=== PATIENT | female | born 1965 | race Caucasian/White ===

== ENCOUNTER 2020-05-03 14:52 | Observation (INO) ==
[2020-05-03] MEDS ORDERED: Isovue-370 500 ML BOTTLE IVP ONE (15:07)
[2020-05-03 15:20] LABS: Hematocrit 36.4 % (35.3-44.9); Mean Corpuscular HGB Conc 33.2 g/dL (31.6-35.5); Mean Corpuscular Hemoglobin 30.5 pg (28.0-33.3); Mean Corpuscular Volume 91.7 fL (83.0-100.0); Mean Platelet Volume 9.7 fL (9.4-12.4); Platelet Count 201 K/mcL (140-400); Red Blood Count 3.97 M/mcL (3.82-4.97); Red Cell Distribution Width 13.1 % (11.5-14.5); White Blood Count 11.6 K/mcL (4.3-11.1)
[2020-05-03 15:24] LABS: Hemoglobin 12.1 g/dL (11.5-15.4)
[2020-05-03 15:41] LABS: Alanine Aminotransferase 31 Units/L (7-52); Albumin/Globulin Ratio 1.5 (1.1-2.2); Alkaline Phosphatase 67 Units/L (34-104); Aspartate Amino Transferase 26 Units/L (13-39); BUN/Creatinine Ratio 12 (6-26); Bilirubin,Direct 0.2 mg/dL (0.0-0.2); Bilirubin,Indirect 0.5 mg/dL (0.0-1.0); Bilirubin,Total 0.7 mg/dL (0.3-1.0); Blood Urea Nitrogen 16 mg/dL (6-20); Calcium 8.3 mg/dL (8.6-10.3); Carbon Dioxide 28 mEq/L (23-29); Chloride 92 mEq/L (98-107); Globulin 2.6 g/dL (2.4-3.5); Glucose 131 mg/dL (70-105); Lipase 27 Units/L (11-82); Osmolality,Calculated 275 (280-300); Potassium 3.3 mEq/L (3.5-5.1); Sodium 131 mEq/L (136-145); Total Protein 6.6 g/dL (6.4-8.9); Troponin I < 0.03 ng/mL (< 0.04); eGFR For African Americans 49 (> 60); eGFR For Non-African Americans 40 (> 60)
[2020-05-03] MEDS ORDERED: 0.9 % Sodium Chloride 500 ML IVC ONE (16:47)
[2020-05-03 16:54] LABS: Bilirubin,Urine Negative (Negative); Blood,Urine Negative (Negative); Clarity,Urine Clear (Clear); Color,Urine Colorless (Yellow); Glucose,Urine (UA) Normal (Normal); Ketones,Urine Negative (Negative); Leukocyte Esterase,Urine Negative (Negative); Nitrite,Urine Negative (Negative); PH,Urine 6.5 pH Units (5.0-8.0); Protein,Urine Negative (Neg-Trace); Specific Gravity,Urine 1.011 (1.010-1.025); Urobilinogen,Urine Normal (Normal)
[2020-05-03] MEDS ORDERED: Naloxone 0.4 MG/ML INJ IVP PRN (18:09)
[2020-05-03] MEDS ORDERED: Ondansetron 4 MG/2 ML VIAL IVP PRN (18:09)
[2020-05-03 18:18] LABS: INR 2.3; Prothrombin Time 26.3 Seconds (9.4-12.1)
[2020-05-03 18:31] LABS: Magnesium 0.8 mg/dL (1.6-2.6)
[2020-05-03] MEDS ORDERED: Ringers Solution, Lactated 1,000 ML IVC SCH (18:45)
[2020-05-03] MEDS: Acetaminophen 325 MG TABLET PO PRN (21:17)
[2020-05-03 21:23] LABS: Calcium 8.2 mg/dL (8.6-10.3); Magnesium 0.8 mg/dL (1.6-2.6); Potassium 3.2 mEq/L (3.5-5.1)
[2020-05-03] MEDS: Potassium Chloride 20 MEQ, Lidocaine 1% 2 ML in 0.9 % Sodium Chloride 250 ML IVPB ONE (23:09)
[2020-05-04] MEDS: Potassium Chloride 20 MEQ, Lidocaine 1% 2 ML in 0.9 % Sodium Chloride 250 ML IVPB ONE (02:11)
[2020-05-04 03:22] LABS: Basophils # 0.1 K/mcL (0.0-0.2); Basophils % 0.8 %; Eosinophils # 0.2 K/mcL (0.0-0.6); Eosinophils % 1.6 %; Hematocrit 39.7 % (35.3-44.9); Hemoglobin 12.9 g/dL (11.5-15.4); Immature Granulocytes % 0.5 % (0-4); Lymphocytes # 2.6 K/mcL (0.6-4.6); Mean Corpuscular HGB Conc 32.5 g/dL (31.6-35.5); Mean Corpuscular Hemoglobin 29.3 pg (28.0-33.3); Mean Platelet Volume 9.6 fL (9.4-12.4); Monocytes # 0.8 K/mcL (0.0-1.3); Monocytes % 8.4 %; Neutrophils # 5.7 K/mcL (1.6-8.9); Platelet Count 245 K/mcL (140-400); Red Blood Count 4.41 M/mcL (3.82-4.97); Segmented Neutrophils % 60.7 %; White Blood Count 9.3 K/mcL (4.3-11.1)
[2020-05-04 03:25] LABS: INR 2.3; Prothrombin Time 26.1 Seconds (9.4-12.1)
[2020-05-04 03:44] LABS: Calcium 8.5 mg/dL (8.6-10.3); Magnesium 2.2 mg/dL (1.6-2.6); Potassium 3.5 mEq/L (3.5-5.1)
[2020-05-04 06:42] LABS: Potassium 3.9 mEq/L (3.5-5.1)
[2020-05-04 07:10] VITALS: BP 120/70
[2020-05-04 08:10] LABS: Estimated Average Glucose 192 mg/dl
[2020-05-04] MEDS: Acetaminophen 325 MG TABLET PO PRN (08:39)
[2020-05-04] MEDS ORDERED: Fenofibrate 54 MG TABLET PO SCH (09:00)
[2020-05-04] MEDS ORDERED: hydrOXYzine pamoate 25 MG CAPSULE PO SCH (09:00)
[2020-05-04] MEDS ORDERED: Gabapentin 400 MG CAPSULE PO SCH (09:00)
[2020-05-04] MEDS ORDERED: Furosemide 40 MG TABLET PO SCH (09:00)
[2020-05-04] MEDS ORDERED: FLUoxetine 20 MG CAPSULE PO SCH (09:00)
[2020-05-04 12:53] LABS: C.difficile Toxin A/B Gene PCR Not detected (Not detect); Campylobacter by PCR Not detected (Not detect); Enteroaggregative E.coli(EAEC) Not detected (Not detect); Enteropathogenic E.coli(EPEC) Not detected (Not detect); Plesiomonas shigelloides PCR Not detected (Not detect); Salmonella PCR Not detected (Not detect); Vibrio PCR Not detected (Not detect); Vibrio cholerae PCR Not detected (Not detect); Yersinia enterocolitica PCR Not detected (Not detect)
[2020-05-04 12:54] LABS: Adenovirus F 40/41 PCR Not detected (Not detect); Astrovirus PCR Not detected (Not detect); Cryptosporidium by PCR Not detected (Not detect); Cyclospora cayetanensis PCR Not detected (Not detect); E. coli O157 by PCR Not detected (Not detect); Entamoeba histolytica PCR Not detected (Not detect); Enterotoxigenic E.coli (ETEC) Not detected (Not detect); Giardia lamblia PCR Not detected (Not detect); Norovirus GI/GII PCR Not detected (Not detect); Rotavirus A PCR Not detected (Not detect); Sapovirus PCR Not detected (Not detect); Shig/EnteroinvasiveE coli EIEC Not detected (Not detect); Shigalike tox-prod E coli STEC Not detected (Not detect)
[2020-05-04] MEDS ORDERED: *HR* Warfarin 5 MG TABLET PO ONE (18:00)
[2020-05-04] MEDS ORDERED: Warfarin perPT PO PRN (18:00)
[2020-05-04] MEDS ORDERED: Mirtazapine 15 MG TABLET PO SCH (21:00)
== END 2020-05-04 15:04 | disposition home or self-care (01) ==
LOC: 3BNU 14:52 → EMEROOARM 14:52 → SUATTDRO 18:12 → 3BNU 18:45
PROVIDERS: ADMIT Pharmacist; ATTEND Internal Medicine